=== PATIENT | female | born 1980 | race Caucasian/White ===

== ENCOUNTER → 2016-07-10 | Outpatient (CLI) | payer OTHER, MEDICAID ==
[~2016-07-10] MED LIST: ANUSOL HC CREAM30 GM TP; ATIVAN 0.50.5 MG/TAB PO; DOXYCYCLINE 10100 MG PO; FLAGYL500 MG PO; MACROBID 1100 MG/CAP PO; NATURE'S BLEN1200 MG PO; NORCO 325 MG-51 TAB PO; PRENATAL MVI; PYRIDIUM 100MG100 MG PO; SEROQUEL 2525 MG/TAB PO; VALTREX1 GM PO; VIIBRYD40 MG PO; ZOFRAN ODT4 MG PO
== END ==
LOC: BHSO 09:45
DX: F41.1 Generalized anxiety disorder (principal)

== ENCOUNTER → 2016-08-25 | Outpatient (CLI) | payer OTHER, MEDICAID | LOC: BHSO 08:29 | DX: F33.41 Major depressive disorder, recurrent, in partial remission (principal) ==

== ENCOUNTER 2016-11-07 09:34 | Emergency (ER) | payer OTHER ==
[~2016-11-07] VITALS: Ht 165.1 cm; Wt 45.9 kg
[2016-11-07 09:44] VITALS: BP 100/60; TEMP 98.1
[2016-11-07 10:29] LABS: PH 5 (5-8); SQUAMOUS EPITHELIAL 0-2 /hpf; URINE APPEARANCE Clear; URINE BACTERIA None Seen /hpf; URINE BILIRUBIN Negative (NEGATIVE); URINE BLOOD 1+ (NEGATIVE); URINE COLOR Yellow; URINE GLUCOSE Negative (NEGATIVE); URINE KETONE 1+ (NEGATIVE); URINE UROBILINOGEN Negative (NEGATIVE)
[2016-11-07 10:30] LABS: URINE WBC >50 /hpf
[2016-11-07] MEDS ORDERED: VIIBRYD40 MG PO (10:33)
[2016-11-07] MEDS ORDERED: ATIVAN 0.50.5 MG/TAB PO (10:33)
[2016-11-07] MEDS ORDERED: NATURE'S BLEN1200 MG PO (10:33)
[2016-11-07] MEDS ORDERED: PRENATAL MVI (10:34)
[2016-11-07] MEDS ORDERED: SEROQUEL 2525 MG/TAB PO (10:34)
[2016-11-07] MEDS ORDERED: NORCO 325 MG-51 TAB PO (12:15)
[2016-11-07] MEDS ORDERED: ANUSOL HC CREAM30 GM TP (12:15)
[2016-11-07] MEDS ORDERED: MACROBID 1100 MG/CAP PO (12:15)
[2016-11-07] MEDS ORDERED: PYRIDIUM 100MG100 MG PO (12:15)
[2016-11-07 12:25] VITALS: PULSE 96
[2016-11-07 13:36] LABS: CHLAMYDIA/TRACH by PCR Female NOT DETECTED; NEISSERIA GON by PCR Female NOT DETECTED
== END 2016-11-07 12:26 | disposition home or self-care (01) ==
LOC: COL.ER 09:34
PROVIDERS: Nurse Practitioner
DX: N39.0 Urinary tract infection, site not specified (principal); K64.9 Unspecified hemorrhoids

== ENCOUNTER 2016-11-11 09:07 | Emergency (ER) | payer OTHER ==
[~2016-11-11] VITALS: Ht 165.1 cm; Wt 44.5 kg
[~2016-11-11 09:07] MED LIST changes: -DOXYCYCLINE 10100 MG PO; -FLAGYL500 MG PO; -VALTREX1 GM PO; -ZOFRAN ODT4 MG PO
[2016-11-11 09:09] VITALS: BP 100/70; TEMP 98.4
[2016-11-11 09:50] LABS: PH 6 (5-8); SQUAMOUS EPITHELIAL 0-2 /hpf; URINE APPEARANCE Clear; URINE BACTERIA None Seen /hpf; URINE BILIRUBIN Negative (NEGATIVE); URINE BLOOD 1+ (NEGATIVE); URINE COLOR Amber; URINE GLUCOSE Negative (NEGATIVE); URINE KETONE Negative (NEGATIVE); URINE RBC 0-2 /hpf
[2016-11-11] MEDS ORDERED: DOXYCYCLINE 10100 MG PO (10:25)
[2016-11-11] MEDS ORDERED: VALTREX1 GM PO (10:25)
[2016-11-11] MEDS ORDERED: FLAGYL500 MG PO (10:26)
[2016-11-11] MEDS ORDERED: NORCO 325 MG-51 TAB PO (10:27)
[2016-11-11] MEDS ORDERED: ZOFRAN ODT4 MG PO (10:33)
[2016-11-11 10:50] VITALS: PULSE 71
[2016-11-11 11:48] LABS: CHLAMYDIA/TRACH by PCR Female NOT DETECTED
[2016-11-11 11:49] LABS: NEISSERIA GON by PCR Female NOT DETECTED
== END 2016-11-11 10:50 | disposition home or self-care (01) ==
LOC: COL.ER 09:07
PROVIDERS: Emergency Medicine
DX: N76.0 Acute vaginitis (principal); L03.011 Cellulitis of right finger; N89.9 Noninflammatory disorder of vagina, unspecified; N72 Inflammatory disease of cervix uteri
CPT/HCPCS: J0696

== ENCOUNTER → 2016-11-11 | Outpatient (CLI) | payer OTHER | LOC: BHSO 08:35 | DX: F33.42 Major depressive disorder, recurrent, in full remission (principal) ==

== ENCOUNTER → 2017-01-11 | Outpatient (CLI) | payer OTHER ==
[~2017-01-11] MED LIST changes: +DOXYCYCLINE 10100 MG PO; +FLAGYL500 MG PO; +VALTREX1 GM PO; +ZOFRAN ODT4 MG PO
== END ==
LOC: BHSO 08:50
DX: F33.42 Major depressive disorder, recurrent, in full remission (principal)

== ENCOUNTER → 2017-04-14 | Outpatient (CLI) | payer OTHER | LOC: BHSO 08:25 | DX: F33.41 Major depressive disorder, recurrent, in partial remission (principal) ==

== ENCOUNTER → 2017-06-18 | Outpatient (CLI) | payer OTHER | LOC: BHSO 09:46 | DX: F33.1 Major depressive disorder, recurrent, moderate (principal) | CPT/HCPCS: G0463 ==